=== PATIENT | male | born 1970 | race Two or more races ===

== ENCOUNTER 2024-01-19 10:53 | Inpatient (IN) | payer OTHER ==
[~2024-01-19] VITALS: Ht 175.3 cm; Wt 74.5 kg
[2024-01-19 00:50] VITALS: BP 199/95; PULSE 96; RESP 16
[2024-01-19] MEDS ORDERED: ACETAMINOPHEN 325 MG TABLET PO PRN (11:45)
[2024-01-19 12:06] LABS: BASOPHILS % (AUTO) 1.6 % (0.0-2.0); EOSINOPHILS % (AUTO) 3.8 % (1.0-6.0); HEMATOCRIT 28.9 % (41-53); HEMOGLOBIN 9.8 g/dL (13.5-17.5); LYMPHOCYTES # (AUTO) 1.3 K/uL (1.0-4.8); LYMPHOCYTES % (AUTO) 35.8 % (22.0-44.0); MEAN CORPUSCULAR HEMOGLOBIN 31.4 pg (26.0-34.0); MEAN CORPUSCULAR HGB CONC 33.7 G/dL (31.0-37.0); MEAN CORPUSCULAR VOLUME 93 fL (80-100); MONOCYTES # (AUTO) 0.3 K/uL (0.1-1.0); MONOCYTES % (AUTO) 8.5 % (2.0-9.0); NEUTROPHILS # (AUTO) 1.8 K/uL (1.8-7.7); NEUTROPHILS % (AUTO) 50.3 % (40.0-70.0); PLATELET COUNT (AUTO) 218 K/uL (150-450); RED BLOOD CELL COUNT(AUTO) 3.11 MIL/uL (4.50-5.90); RED CELL DISTRIBUTION WIDTH 16.3 % (11.5-14.5); WHITE BLOOD COUNT (AUTO) 3.5 K/uL (4.5-11.0)
[2024-01-19 12:18] LABS: CALCIUM, TOTAL 8.4 mg/dL (8.8-10.5); CREATININE 10.5 mg/dL (0.60-1.30); POTASSIUM 5.4 mmol/L (3.5-5.1)
[2024-01-19 16:25] VITALS: BP 147/78; PULSE 54; RESP 16; TEMP 98.3
[2024-01-19 16:29] VITALS: BP 171/78; PULSE 60; RESP 18; TEMP 97.6
[2024-01-19 17:53] VITALS: BP 148/69
[2024-01-19 19:30] VITALS: BP 141/74; PULSE 60; RESP 18; TEMP 98
[2024-01-19] MEDS: EPOETIN ALFA 10,000 UNITS/ML VIAL IVP ONE (20:52)
[2024-01-19 23:50] VITALS: BP 193/93; PULSE 53; RESP 16
[2024-01-20] VITALS (12 sets, daily range): BP systolic 132–218; BP diastolic 66–115; PULSE 48–63; RESP 16–20; TEMP 98–98.3
[2024-01-20] MEDS: NIFEdipine 60 MG ER TABLET PO SCH (03:50)
[2024-01-20] MEDS: CloNIDine HCL 0.1 MG TABLET PO PRN (07:42)
[2024-01-20] MEDS: HydrALAZINE HCL 25 MG TABLET PO SCH (16:24)
[2024-01-21] VITALS (14 sets, daily range): BP systolic 132–180; BP diastolic 51–92; PULSE 49–71; RESP 16–20; TEMP 97.2–98.3
[2024-01-21] MEDS ORDERED: SODIUM CHLORIDE 0.9% 1,000 ML ONE ×2 (07:53)
[2024-01-21] MEDS ORDERED: NIFE-129 PO (11:44)
[2024-01-21] MEDS ORDERED: SEVE800T38 PO (11:44)
[2024-01-21] MEDS ORDERED: CINA30 PO (11:44)
[2024-01-21] MEDS ORDERED: PARI5VIA7 IVP (11:44)
[2024-01-21] MEDS ORDERED: CLON1PAT13 TD (11:44)
[2024-01-21] MEDS ORDERED: EPOE10I SQ (11:44)
[2024-01-21] MEDS: CloNIDine HCL 0.1 MG TABLET PO ONE (13:24)
[2024-01-21] MEDS ORDERED: SODIUM CHLORIDE 0.9% 500 ML IV ONE (17:09)
== END 2024-01-21 17:27 | DRG 682 ==
LOC: EMS 10:53 → 6N 15:00 → EMS 15:27
PROVIDERS: ADMIT Internal Medicine; ATTEND Internal Medicine
PROC: 5A1D70Z Performance of Urinary Filtration, Intermittent, Less than 6 Hours Per Day (ICD-10-PCS; 2024-01-19)
PROC: 5A1D70Z Performance of Urinary Filtration, Intermittent, Less than 6 Hours Per Day (ICD-10-PCS; principal; 2024-01-21)
DX: I12.0 Hypertensive chronic kidney disease with stage 5 chronic kidney disease or end stage renal disease (principal); N18.6 End stage renal disease; E87.5 Hyperkalemia; K57.90 Diverticulosis of intestine, part unspecified, without perforation or abscess without bleeding; D63.1 Anemia in chronic kidney disease; Z99.2 Dependence on renal dialysis; Z91.013 Allergy to seafood
CPT/HCPCS: 80048; 85025; 87081; 87340; 90935; 99285; J0885; J7030; J7040